=== PATIENT | male | born 1960 | race African-American/Black ===

== ENCOUNTER 2018-08-11 21:39 | Emergency (ER) | payer OTHER ==
[~2018-08-11] VITALS: Ht 167.6 cm; Wt 90.7 kg
[~2018-08-11 21:39] MED LIST: ASPI-612 PO; LISI10TA2 PO; METF500T16 PO; TAMS0.4C97 PO
[2018-08-11] MEDS ORDERED: HYDROcodone/APAP 5/325MG 1 TAB TABLET PO ONE (23:00)
[2018-08-11 23:15] VITALS: BP 105/59
--- NOTE | 2018-08-11 23:43 | RAD ---
Indication: Left arm severe pain and weakness TECHNIQUE: Grayscale, color Doppler and spectral waveform images of the left upper extremity deep veins COMPARISON: None FINDINGS: The internal jugular vein is compressible and demonstrates evidence of blood flow. Subclavian vein demonstrates evidence of blood flow. Axillary vein and brachial vein are compressible and demonstrates evidence of blood flow. Basilic vein, cephalic vein, radial vein and or lateral veins are compressible. Hypoechoic lobulated 1.7 x 1.6 x 0.7 cm fluid collection is seen in the lateral aspect of the posterior elbow soft tissue in the region of pain. IMPRESSION: 1. No evidence of DVT. 2. Complex posterior elbow joint fluid collection. Electronically signed by: Jeyson Bustos DO (08/11/2018 11:39 PM) [facility]
[2018-08-11] MEDS ORDERED: HYDR-3164 PO (23:56)
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
[2018-08-12] MEDS ORDERED: DEXAMETHASONE 4 MG TABLET PO ONE (00:30)
== END 2018-08-12 00:30 | disposition home or self-care (01) ==
LOC: ER 21:39
DX: M19.022 Primary osteoarthritis, left elbow (principal); M79.622 Pain in left upper arm; R53.1 Weakness; E11.9 Type 2 diabetes mellitus without complications; I10 Essential (primary) hypertension; F17.200 Nicotine dependence, unspecified, uncomplicated; Z91.013 Allergy to seafood
CPT/HCPCS: 93971; 99284; J8540